=== PATIENT | male | born 1985 | race Caucasian/White ===

== ENCOUNTER 2020-09-26 01:05 | Emergency (ER) | payer MEDICARE, MEDICAID ==
--- NOTE | 2020-09-26 01:48 | EDM.PDOC ---
ED HPI GENERAL MEDICAL PROBLEM - General Chief Complaint: Cardiovascular Problem Stated Complaint: CHEST DISCOMFORT Time Seen by Provider: 09/26/20 01:20 Source of Information: Reports: Patient History Limitations: Reports: No Limitations - History of Present Illness INITIAL COMMENTS - FREE TEXT/NARRATIVE: patient presented to the ER with vague complaints for the last 6-12 months. He reports that over the last 12 months - has been experiencing cough that is worse at bedtime, thou no SOB. No fever or chills. No CP. Also reports, feeling palpitations on/off over the last 6-7 months as well. He didn't seek a medical advice for this. He reports that he smoke a ppd. No job at this time. Stay at home. He also reports that he wakes up in the middle of the night several times and snore sometimes - He reports that he might have sleep apnea as well. No N/V/D. No abd pain. no current symptoms. He reports that he googled his symptoms in the internet and decided to come to the ER for a check up. - Related Data Allergies Allergy/AdvReac Type Severity Reaction Status Date / Time diphenhydramine Allergy Other Verified 09/26/20 01:33 [From Benadryl] silver Allergy Other Verified 09/26/20 01:33 Home Meds: Home Meds NK [No Known Home Meds] 09/26/20 [History] Past Medical History HEENT History: Reports: Impaired Vision Cardiovascular History: Reports: None Respiratory History: Reports: None Gastrointestinal History: Reports: None Genitourinary History: Reports: None Musculoskeletal History: Reports: None Neurological History: Reports: Brain Injury, Other (See Below) Other 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 Endocrine/Metabolic History: Reports: Other (See Below) Other Endocrine/Metabolic History: Possible diabetes- Hematologic History: Reports: None Immunologic History: Reports: None Oncologic (Cancer) History: Reports: None Dermatologic History: Reports: None - Past Surgical History Cardiovascular Surgical History: Reports: None Social & Family History - Tobacco Use Tobacco Use Status *Q: Current Every Day Tobacco User Years of Tobacco use: 20 Packs/Tins Daily: 1 - Recreational Drug Use Recreational Drug Use: No ED ROS GENERAL - Review of Systems Review Of Systems: See Below Constitutional: Reports: No Symptoms. Denies: Fever, Chills HEENT: Reports: No Symptoms Respiratory: Reports: Cough Cardiovascular: Reports: No Symptoms. Denies: Chest Pain GI/Abdominal: Reports: No Symptoms : Reports: No Symptoms Musculoskeletal: Reports: No Symptoms Skin: Reports: No Symptoms Neurological: Reports: No Symptoms ED EXAM, GENERAL - Physical Exam Exam: See Below Exam Limited By: No Limitations General Appearance: Alert, WD/WN, No Apparent Distress Respiratory/Chest: No Respiratory Distress, Lungs Clear Cardiovascular: Normal Peripheral Pulses #1 Interpretation EKG Date: 09/26/20 Time: 01:35 Rhythm: NSR Rate (Beats/Min): 85 [place]: Normal P-Wave: Present QRS: Normal ST-T: Normal QT: Normal Comparison: NA - No Prior EKG Course - Vital Signs Last Recorded V/S: Last Vital Signs Temp 36.6 C 09/26/20 01:07 Pulse 70 09/26/20 02:25 Resp 13 09/26/20 02:25 BP 128/60 09/26/20 02:25 Pulse Ox 98 09/26/20 02:25 - Orders/Labs/Meds Orders: Active Orders 24 hr Category Date Time Status EKG Documentation Completion [RC] ASDIRECTED Care 09/26/20 01:26 Ordered CXR [Chest 1V Frontal] [CR] Stat Exams 09/26/20 01:41 Ordered Labs: Laboratory Tests 09/26/20 09/26/20 09/26/20 Range/Units 01:53 02:05 02:05 WBC 12.0 H (4.0-11.0) K/uL RBC 5.91 (4.50-6.50) M/uL Hgb 18.1 H* (13.0-18.0) g/dL Hct 50.9 (40.0-54.0) % MCV 86 (76-96) fL MCH 30.6 (27.0-32.0) pg MCHC 35.6 H (31.0-35.0) g/dL RDW 13.2 (11.0-16.0) % Plt Count 227 (150-400) K/uL MPV 10.5 H (6.0-10.0) fL D-Dimer, Quantitative < 100 (0-400) ng/mL Sodium (136-145) mmol/L Potassium (3.5-5.1) mmol/L Chloride (98-107) mmol/L Carbon Dioxide (21.0-32.0) mmol/L Anion Gap (5.0-15.0) mmol/L BUN (8-26) mg/dL Creatinine (0.70-1.30) mg/dL Est Cr Clr Drug Dosing mL/min Estimated GFR (MDRD) (>60) MLS/MIN BUN/Creatinine Ratio (6-25) Glucose (74-100) mg/dL Calcium (8.5-10.1) mg/dL Troponin I (0.000-0.060) ng/mL Urine Opiates Screen (NEGATIVE) Ur Oxycodone Screen (NEGATIVE) Urine Methadone Screen (NEGATIVE) Ur Barbiturates Screen (NEGATIVE) Ur Tricyclics Screen (NEGATIVE) Ur Phencyclidine Scrn (NEGATIVE) Ur Amphetamine Screen (NEGATIVE) U Methamphetamines Scrn (NEGATIVE) Urine MDMA Screen (NEGATIVE) U Benzodiazepines Scrn (NEGATIVE) U Cocaine Metab Screen (NEGATIVE) U Marijuana (THC) Screen (NEGATIVE) SARS CoV-2 RNA Rapid DWIGHT Negative 09/26/20 09/26/20 Range/Units 02:05 02:25 WBC (4.0-11.0) K/uL RBC (4.50-6.50) M/uL Hgb (13.0-18.0) g/dL Hct (40.0-54.0) % MCV (76-96) fL MCH (27.0-32.0) pg MCHC (31.0-35.0) g/dL RDW (11.0-16.0) % Plt Count (150-400) K/uL MPV (6.0-10.0) fL D-Dimer, Quantitative (0-400) ng/mL Sodium 140 (136-145) mmol/L Potassium 4.5 (3.5-5.1) mmol/L Chloride 102 (98-107) mmol/L Carbon Dioxide 28.0 (21.0-32.0) mmol/L Anion Gap 14.5 (5.0-15.0) mmol/L BUN 17 (8-26) mg/dL Creatinine 1.13 (0.70-1.30) mg/dL Est Cr Clr Drug Dosing 94.21 mL/min Estimated GFR (MDRD) > 60 (>60) MLS/MIN BUN/Creatinine Ratio 15.0 (6-25) Glucose 106 H (74-100) mg/dL Calcium 9.1 (8.5-10.1) mg/dL Troponin I < 0.017 (0.000-0.060) ng/mL Urine Opiates Screen Negative (NEGATIVE) Ur Oxycodone Screen Negative (NEGATIVE) Urine Methadone Screen Negative (NEGATIVE) Ur Barbiturates Screen Negative (NEGATIVE) Ur Tricyclics Screen Negative (NEGATIVE) Ur Phencyclidine Scrn Negative (NEGATIVE) Ur Amphetamine Screen Negative (NEGATIVE) U Methamphetamines Scrn Negative (NEGATIVE) Urine MDMA Screen Negative (NEGATIVE) U Benzodiazepines Scrn Negative (NEGATIVE) U Cocaine Metab Screen Negative (NEGATIVE) U Marijuana (THC) Screen Negative (NEGATIVE) SARS CoV-2 RNA Rapid DWIGHT - Re-Assessments/Exams Free Text/Narrative Re-Assessment/Exam: 09/26/20 01:50 vitals WNL EKG - NSR, no acute ischemic changes labs - including CBC, bmp, Trop, DDIMER and COVID. 09/26/20 02:49 Labs were WNL. Negative Trop and COVID. Vitals still WNL Departure - Departure Time of Disposition: 02:50 Disposition: Home, Self-Care 01 Clinical Impression: Smoking greater than 10 pack years, Severely overweight Instructions: Steps to Quit Smoking, [id number], Smoking Tobacco Information, Adult Forms: ED Department Discharge Sepsis Event Note (ED) - Evaluation Sepsis Screening Result: No Definite Risk - Focused Exam Vital Signs: Vital Signs Temp Pulse Resp BP Pulse Ox 09/26/20 02:25 70 13 128/60 98 09/26/20 01:41 74 12 145/74 H 98 09/26/20 01:07 36.6 C 77 11 L 151/77 H 98 09/26/20 01:05 36.6 C 83 14 151/77 H 98 - Problem List & Annotations (1) Severely overweight SNOMED Code(s): 281974289 Code(s): E66.3 - OVERWEIGHT Status: Acute Priority: Medium (2) Smoking greater than 10 pack years SNOMED Code(s): 06539454 Code(s): F17.210 - NICOTINE DEPENDENCE, CIGARETTES, UNCOMPLICATED Status: Acute Priority: Medium (3) Cough SNOMED Code(s): 74626059 Code(s): R05 - COUGH Status: Acute Priority: Low - Problem List Review Problem List Initiated/Reviewed/Updated: Yes - My Orders Last 24 Hours: My Active Orders 09/26/20 01:26 EKG Documentation Completion [RC] ASDIRECTED 09/26/20 01:41 CXR [Chest 1V Frontal] [CR] Stat - Assessment/Plan Last 24 Hours: My Active Orders 09/26/20 01:26 EKG Documentation Completion [RC] ASDIRECTED 09/26/20 01:41 CXR [Chest 1V Frontal] [CR] Stat Plan: - recommend to quit smoking - discuss with your PCP using nicotine replacement options - also recommend to work on losing some weight - this will help with your breathing and sleep apnea - discuss with your PCP if you need to start using a CPAP machine to help with your sleeping. - follow up with a PCP in 2-4 weeks
--- NOTE | 2020-09-26 12:29 | CR ---
DATE OF SERVICE: 09/24/20 CLINICAL DATA: cough PORTABLE CHEST: The patient is in an apical lordotic position. No priors. The patient has taken a poor inspiration. The heart size is normal. The lungs are clear. No pneumothorax. No pleural effusions. No evidence of acute intrathoracic disease. [id number] [facility]
== END 2020-09-26 02:56 | disposition home or self-care (01) ==
LOC: LB.ED 01:05
DX: E66.3 Overweight (principal); R05 Cough; F17.210 Nicotine dependence, cigarettes, uncomplicated; Z68.42 Body mass index [BMI] 45.0-49.9, adult; Z88.8 Allergy status to other drugs, medicaments and biological substances; Z88.2 Allergy status to sulfonamides; Z20.822 Contact with and (suspected) exposure to COVID-19
CPT/HCPCS: 36415; 71045; 80048; 80307; 84484; 85027; 85379; 93005; 99283; 99284-25; U0002

== ENCOUNTER 2021-04-20 19:47 | Emergency (ER) | payer MEDICARE, MEDICAID ==
--- NOTE | 2021-04-20 22:18 | EDM.PDOC ---
ED HPI GENERAL MEDICAL PROBLEM - General Chief Complaint: Cardiovascular Problem Stated Complaint: SOB Time Seen by Provider: 04/20/21 20:30 - History of Present Illness INITIAL COMMENTS - FREE TEXT/NARRATIVE: Pt comes in with C/O not feeling well for a few days. He has had chills, a cough that is occasionally productive of green mucous. And has had some chest pressure off and on for over 1 year. He knows he has anxiety at times. He is not currently working. 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 Respiratory: Reports: Cough, Sputum Cardiovascular: Reports: Other (chest pressure or tightness.) ED EXAM, GENERAL - Physical Exam Exam: See Below General Appearance: Obese Throat/Mouth: Other (posterior pharynx is mildly reddened.) #1 Interpretation EKG Date: 04/20/21 Time: 21:50 Course - Orders/Labs/Meds Orders: Active Orders 24 hr Category Date Time Status EKG Documentation Completion [RC] ASDIRECTED Care 04/20/21 21:29 Ordered Chest 1V Frontal [CR] Stat Exams 04/20/21 21:30 Ordered Labs: Laboratory Tests 04/20/21 04/20/21 04/20/21 Range/Units 20:10 21:28 21:29 WBC 11.8 H (4.0-11.0) K/uL RBC 5.50 (4.50-6.50) M/uL Hgb 17.0 (13.0-18.0) g/dL Hct 47.7 (40.0-54.0) % MCV 87 (76-96) fL MCH 30.9 (27.0-32.0) pg MCHC 35.6 H (31.0-35.0) g/dL RDW 12.8 (11.0-16.0) % Plt Count 221 (150-400) K/uL MPV 10.2 H (6.0-10.0) fL Neut % (Auto) 62.8 (45.0-70.0) % Lymph % (Auto) 28.0 (20.0-40.0) % [place] % (Auto) 7.6 (3.0-10.0) % Eos % (Auto) 1.4 (1.0-5.0) % Baso % (Auto) 0.2 (0.0-0.5) % Neut # (Auto) 7.45 (2.00-7.50) K/uL Lymph # (Auto) 3.31 (1.50-4.00) K/uL [place] # (Auto) 0.90 H (0.20-0.80) K/uL Eos # (Auto) 0.16 (0.04-0.40) K/uL Baso # (Auto) 0.02 (0.02-0.10) K/uL D-Dimer, Quantitative (0-400) ng/mL Sodium 139 (136-145) mmol/L Potassium 4.0 (3.5-5.1) mmol/L Chloride 103 (98-107) mmol/L Carbon Dioxide 27.6 (21.0-32.0) mmol/L Anion Gap 12.4 (5.0-15.0) mmol/L BUN 18 (8-26) mg/dL Creatinine 1.15 (0.70-1.30) mg/dL Est Cr Clr Drug Dosing TNP Estimated GFR (MDRD) > 60 (>60) MLS/MIN BUN/Creatinine Ratio 15.7 (6-25) Glucose 104 H (74-100) mg/dL Calcium 8.9 (8.5-10.1) mg/dL Total Bilirubin 0.6 (0.0-1.0) mg/dL AST 23 (15-37) U/L ALT 51 (12-78) U/L Alkaline Phosphatase 87 (46-116) U/L Troponin I < 0.017 (0.000-0.060) ng/mL Total Protein 7.7 (6.4-8.2) g/dL Albumin 4.1 (3.4-5.0) g/dL Globulin 3.6 (2.2-4.2) g/dL Albumin/Globulin Ratio 1.1 (0.8-2.0) SARS-CoV-2 RNA (DWIGHT) Negative (NEGATIVE) 04/20/21 Range/Units 21:30 WBC (4.0-11.0) K/uL RBC (4.50-6.50) M/uL Hgb (13.0-18.0) g/dL Hct (40.0-54.0) % MCV (76-96) fL MCH (27.0-32.0) pg MCHC (31.0-35.0) g/dL RDW (11.0-16.0) % Plt Count (150-400) K/uL MPV (6.0-10.0) fL Neut % (Auto) (45.0-70.0) % Lymph % (Auto) (20.0-40.0) % [place] % (Auto) (3.0-10.0) % Eos % (Auto) (1.0-5.0) % Baso % (Auto) (0.0-0.5) % Neut # (Auto) (2.00-7.50) K/uL Lymph # (Auto) (1.50-4.00) K/uL [place] # (Auto) (0.20-0.80) K/uL Eos # (Auto) (0.04-0.40) K/uL Baso # (Auto) (0.02-0.10) K/uL D-Dimer, Quantitative < 100 (0-400) ng/mL Sodium (136-145) mmol/L Potassium (3.5-5.1) mmol/L Chloride (98-107) mmol/L Carbon Dioxide (21.0-32.0) mmol/L Anion Gap (5.0-15.0) mmol/L BUN (8-26) mg/dL Creatinine (0.70-1.30) mg/dL Est Cr Clr Drug Dosing Estimated GFR (MDRD) (>60) MLS/MIN BUN/Creatinine Ratio (6-25) Glucose (74-100) mg/dL Calcium (8.5-10.1) mg/dL Total Bilirubin (0.0-1.0) mg/dL AST (15-37) U/L ALT (12-78) U/L Alkaline Phosphatase (46-116) U/L Troponin I (0.000-0.060) ng/mL Total Protein (6.4-8.2) g/dL Albumin (3.4-5.0) g/dL Globulin (2.2-4.2) g/dL Albumin/Globulin Ratio (0.8-2.0) SARS-CoV-2 RNA (DWIGHT) (NEGATIVE) - Re-Assessments/Exams Free Text/Narrative Re-Assessment/Exam: 04/20/21 22:14 Labs including Covid are nml, with only a slightly elevated WBC. Pt states he feels better now. He will be discharged home. Conservative measures are discussed - OTC meds prn - push fluids. Activity as tolerated. Re check prn if symptoms get worse. Departure - Departure Time of Disposition: 22:00 Disposition: Home, Self-Care 01 Condition: Good Clinical Impression: Upper respiratory infection Qualifiers: URI type: unspecified viral URI Qualified Code(s): J06.9 - Acute upper respiratory infection, unspecified - My Orders Last 24 Hours: My Active Orders 04/20/21 21:29 EKG Documentation Completion [RC] ASDIRECTED 04/20/21 21:30 Chest 1V Frontal [CR] Stat - Assessment/Plan Last 24 Hours: My Active Orders 04/20/21 21:29 EKG Documentation Completion [RC] ASDIRECTED 04/20/21 21:30 Chest 1V Frontal [CR] Stat
--- NOTE | 2021-04-21 20:25 | CR ---
CLINICAL DATA: Cough. PORTABLE CHEST, 20 APRIL 2021: Comparison was made to a prior exam dated 26 September 2020. The heart size is normal. The lungs are clear. No pneumothorax. No pleural effusions. No evidence of acute intrathoracic disease. Job: [id number] [facility]TD[facility]
== END 2021-04-20 22:20 | disposition home or self-care (01) ==
LOC: LB.ED 19:47
DX: J06.9 Acute upper respiratory infection, unspecified (principal); Z88.8 Allergy status to other drugs, medicaments and biological substances; Z91.048 Other nonmedicinal substance allergy status; Z20.822 Contact with and (suspected) exposure to COVID-19
CPT/HCPCS: 36415; 71045; 80053; 84484; 85025; 85379; 87430; 93005; 99284; U0002

== ENCOUNTER 2021-04-23 12:55 | Emergency (ER) | payer MEDICARE, MEDICAID ==
--- NOTE | 2021-05-16 06:22 | EDM.PDOC ---
ED HPI GENERAL MEDICAL PROBLEM - General Chief Complaint: Cardiovascular Problem Stated Complaint: heart racing Time Seen by Provider: 04/23/21 13:42 Source of Information: Reports: Patient History Limitations: Reports: No Limitations - History of Present Illness INITIAL COMMENTS - FREE TEXT/NARRATIVE: No current complaints. 36-year-old male presents to the ED complaining of rapid heart rate (yesterday), palpitations (yesterday), hypertension sensation on his skin. Patient became anxious about these feelings, especially last night. Patient has been getting worked up for same, patient has similar episodes. Onset is acute. Patient has no active problem currently patient experienced palpitations last night. Patient has history of experiencing him as he lays down to go to sleep feels that his heart is skipping beats. Patient drinks caffeine, and does not drink much liquid throughout the day. There is no associated chest pain, shortness of breath, dizzy, lightheaded, syncope, nausea, vomiting - Related Data Allergies Allergy/AdvReac Type Severity Reaction Status Date / Time diphenhydramine Allergy Other Verified 04/23/21 13:37 [From Benadryl] silver Allergy Other Verified 04/23/21 13:37 Home Meds: Home Meds NK [No Known Home Meds] 09/26/20 [History] Past Medical History HEENT History: Reports: Impaired Vision Cardiovascular History: Reports: None Respiratory History: Reports: None Gastrointestinal History: Reports: None Genitourinary History: Reports: None Musculoskeletal History: Reports: None Neurological History: Reports: Brain Injury, Other (See Below) Other 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 Endocrine/Metabolic History: Reports: Other (See Below) Other Endocrine/Metabolic History: Possible diabetes- Hematologic History: Reports: None Immunologic History: Reports: None Oncologic (Cancer) History: Reports: None Dermatologic History: Reports: None - Infectious Disease History Infectious Disease History: Reports: Chicken Pox - Past Surgical History Cardiovascular Surgical History: Reports: None Social & Family History - Tobacco Use Tobacco Use Status *Q: Current Every Day Tobacco User Years of Tobacco use: 20 Packs/Tins Daily: 1 Used Tobacco, but Quit: No Second Hand Smoke Exposure: No - Caffeine Use Caffeine Use: Reports: Coffee, Soda - Recreational Drug Use Recreational Drug Use: No ED ROS GENERAL - Review of Systems Review Of Systems: See Below Constitutional: Reports: No Symptoms HEENT: Reports: No Symptoms Respiratory: Reports: No Symptoms Cardiovascular: Reports: Palpitations, Other (Rapid heart rate) Endocrine: Reports: No Symptoms GI/Abdominal: Reports: No Symptoms : Reports: No Symptoms Musculoskeletal: Reports: No Symptoms Skin: Reports: Other (Pinching sensation superficial left pack) Neurological: Reports: No Symptoms Psychiatric: Reports: Anxiety Hematologic/Lymphatic: Reports: No Symptoms Immunologic: Reports: No Symptoms ED EXAM, GENERAL - Physical Exam Exam: See Below Free Text/Narrative:: 36-year-old male found in a semifowler position in trauma bay 3. No apparent distress, patient slightly anxious. Alert and oriented 3 of 3, GCS 4 5 6. Speaking in full sentences, no obvious trauma Exam Limited By: No Limitations General Appearance: Alert, WD/WN, No Apparent Distress Eye Exam: Bilateral Eye: EOMI, PERRL Ears: Normal External Exam, Hearing Grossly Normal Nose: Normal Inspection, Normal Mucosa, No Blood Throat/Mouth: Normal Inspection, Normal Lips, Normal Oropharynx, Normal Voice, No Airway Compromise Head: Atraumatic, Normocephalic Neck: Normal Inspection, Supple, Non-Tender, Full Range of Motion Respiratory/Chest: No Respiratory Distress, Lungs Clear, Normal Breath Sounds, No Accessory Muscle Use, Chest Non-Tender Cardiovascular: Normal Peripheral Pulses, Regular Rate, Rhythm, No Edema, No Gallop, No JVD, No Murmur, No Rub GI/Abdominal: Normal Bowel Sounds, Soft, Non-Tender, No Organomegaly, No Distention, No Abnormal Bruit, No Mass Back Exam: Normal Inspection, Full Range of Motion, NT Extremities: Normal Inspection, Non-Tender, No Pedal Edema, Normal Capillary Refill Neurological: Alert, Oriented, Normal Cognition, Normal Gait Psychiatric: Normal Affect, Anxious Skin Exam: Warm, Dry, Intact, Normal Color, No Rash Lymphatic: No Adenopathy #1 Interpretation EKG Date: 05/16/21 (Normal sinus rhythm without ectopy) Course - Vital Signs Last Recorded V/S: Last Vital Signs Temp 98.9 F 04/23/21 13:28 Pulse 82 04/23/21 13:28 Resp 20 04/23/21 13:28 BP 144/87 H 04/23/21 13:28 Pulse Ox 97 04/23/21 13:28 - Orders/Labs/Meds Labs: Laboratory Tests 04/23/21 04/23/21 Range/Units 14:15 14:15 WBC 8.2 D (4.0-11.0) K/uL RBC 5.37 (4.50-6.50) M/uL Hgb 16.6 (13.0-18.0) g/dL Hct 46.8 (40.0-54.0) % MCV 87 (76-96) fL MCH 30.9 (27.0-32.0) pg MCHC 35.5 H (31.0-35.0) g/dL RDW 12.9 (11.0-16.0) % Plt Count 224 (150-400) K/uL MPV 10.0 (6.0-10.0) fL Neut % (Auto) 63.7 (45.0-70.0) % Lymph % (Auto) 27.6 (20.0-40.0) % [place] % (Auto) 7.2 (3.0-10.0) % Eos % (Auto) 1.3 (1.0-5.0) % Baso % (Auto) 0.2 (0.0-0.5) % Neut # (Auto) 5.20 (2.00-7.50) K/uL Lymph # (Auto) 2.26 (1.50-4.00) K/uL [place] # (Auto) 0.59 (0.20-0.80) K/uL Eos # (Auto) 0.11 (0.04-0.40) K/uL Baso # (Auto) 0.02 (0.02-0.10) K/uL Sodium 138 (136-145) mmol/L Potassium 4.0 (3.5-5.1) mmol/L Chloride 104 (98-107) mmol/L Carbon Dioxide 27.8 (21.0-32.0) mmol/L Anion Gap 10.2 (5.0-15.0) mmol/L BUN 15 (8-26) mg/dL Creatinine 1.11 (0.70-1.30) mg/dL Est Cr Clr Drug Dosing 94.99 mL/min Estimated GFR (MDRD) > 60 (>60) MLS/MIN BUN/Creatinine Ratio 13.5 (6-25) Glucose 102 H (74-100) mg/dL Calcium 8.8 (8.5-10.1) mg/dL Departure - Departure Time of Disposition: 15:07 Disposition: Home, Self-Care 01 Condition: Good Clinical Impression: Palpitations Referrals: PCP,None [Primary Care Provider] - Forms: ED Department Discharge Sepsis Event Note (ED) - Evaluation Sepsis Screening Result: No Definite Risk - Assessment/Plan Assessment:: Per patient symptoms, history, exam patient does not have any current/active complaints at this time in the ED. Sounds as if patient is experiencing PVCs that he notices around bedtime/after laying down. Patient is being worked up by cardiology for same patient is scheduled to have Holter monitor. Patient presents no symptoms concerning for infectious process, current cardiac event. Plan: ABC, history, exam, labs (unremarkable), patient education/shared decision making, patient be followed up by cardiology with Holter monitor, no active complaints in ED, patient discharged in stable condition. Patient advised to cut down on caffeine, increase oral intake of fluid consider drinking Pedialyte.
== END 2021-04-23 15:07 | disposition home or self-care (01) ==
LOC: LB.ED 12:55
DX: R00.2 Palpitations (principal); Z72.0 Tobacco use; Z88.8 Allergy status to other drugs, medicaments and biological substances; Z91.048 Other nonmedicinal substance allergy status
CPT/HCPCS: 36415; 80048; 85025; 99285-25

== ENCOUNTER 2021-05-22 16:18 | Emergency (ER) | payer MEDICARE, MEDICAID ==
--- NOTE | 2021-05-22 17:36 | EDM.PDOC ---
ED HPI GENERAL MEDICAL PROBLEM - General Chief Complaint: Cardiovascular Problem Stated Complaint: vomitting Time Seen by Provider: 05/22/21 16:30 - History of Present Illness INITIAL COMMENTS - FREE TEXT/NARRATIVE: Pt comes to the ER with C/O not feeling well. He became SOB with nausea and vomiting x 1 today. He denies any chest pain today, but has had heartburn symptoms nightly for awhile. He has had some of these symptoms for 8 months, and is currently wearing a ZIO patch. He has had multiple workups for this with negative findings. - Related Data Allergies Allergy/AdvReac Type Severity Reaction Status Date / Time diphenhydramine Allergy Other Verified 04/23/21 13:37 [From Benadryl] silver Allergy Other Verified 04/23/21 13:37 Home Meds: Home Meds NK [No Known Home Meds] 09/26/20 [History] Past Medical History HEENT History: Reports: Impaired Vision Cardiovascular History: Reports: None Respiratory History: Reports: None Gastrointestinal History: Reports: None Genitourinary History: Reports: None Musculoskeletal History: Reports: None Neurological History: Reports: Brain Injury, Other (See Below) Other 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 Psychiatric History: Reports: Anxiety Endocrine/Metabolic History: Reports: Other (See Below) Other Endocrine/Metabolic History: Possible diabetes- Hematologic History: Reports: None Immunologic History: Reports: None Oncologic (Cancer) History: Reports: None Dermatologic History: Reports: None - Infectious Disease History Infectious Disease History: Reports: Chicken Pox - Past Surgical History Cardiovascular Surgical History: Reports: None Social & Family History - Tobacco Use Tobacco Use Status *Q: Former Tobacco User Used Tobacco, but Quit: Yes Month/Year Tobacco Last Used: 05/2021 - Caffeine Use Caffeine Use: Reports: Coffee, Soda - Alcohol Use Days Per Week of Alcohol Use: 1 Number of Drinks Per Day: 2 Total Drinks Per Week: 2 - Recreational Drug Use Recreational Drug Use: No ED ROS GENERAL - Review of Systems Review Of Systems: Comprehensive ROS is negative, except as noted in HPI. Respiratory: Reports: Shortness of Breath GI/Abdominal: Reports: Vomiting, Other (heartburn) Neurological: Reports: Dizziness ED EXAM, GENERAL - Physical Exam Exam: See Below Eye Exam: Bilateral Eye: EOMI, PERRL Cardiovascular: Other (ZIO patch is in place.) #1 Interpretation EKG Date: 05/22/21 Time: 16:50 Course - Vital Signs Last Recorded V/S: Last Vital Signs Temp 97.9 F 05/22/21 16:44 Pulse 92 05/22/21 16:44 Resp 16 05/22/21 16:44 BP 139/87 05/22/21 16:44 Pulse Ox 96 05/22/21 16:44 - Orders/Labs/Meds Orders: Active Orders 24 hr Category Date Time Status Chest 1V Frontal [CR] Stat Exams 05/22/21 16:36 Ordered EKG 12 Lead [EK] Stat Ther 05/22/21 16:36 Ordered Labs: Laboratory Tests 05/22/21 05/22/21 Range/Units 16:36 17:00 WBC 9.7 (4.0-11.0) K/uL RBC 5.01 (4.50-6.50) M/uL Hgb 15.3 (13.0-18.0) g/dL Hct 43.7 (40.0-54.0) % MCV 87 (76-96) fL MCH 30.5 (27.0-32.0) pg MCHC 35.0 (31.0-35.0) g/dL RDW 13.0 (11.0-16.0) % Plt Count 200 (150-400) K/uL MPV 10.1 H (6.0-10.0) fL Neut % (Auto) 67.5 (45.0-70.0) % Lymph % (Auto) 25.1 (20.0-40.0) % [place] % (Auto) 6.3 (3.0-10.0) % Eos % (Auto) 0.9 L (1.0-5.0) % Baso % (Auto) 0.2 (0.0-0.5) % Neut # (Auto) 6.52 (2.00-7.50) K/uL Lymph # (Auto) 2.42 (1.50-4.00) K/uL [place] # (Auto) 0.61 (0.20-0.80) K/uL Eos # (Auto) 0.09 (0.04-0.40) K/uL Baso # (Auto) 0.02 (0.02-0.10) K/uL Sodium 140 (136-145) mmol/L Potassium 4.0 (3.5-5.1) mmol/L Chloride 105 (98-107) mmol/L Carbon Dioxide 24.3 (21.0-32.0) mmol/L Anion Gap 14.7 (5.0-15.0) mmol/L BUN 21 D (8-26) mg/dL Creatinine 1.25 (0.70-1.30) mg/dL Est Cr Clr Drug Dosing 87.01 mL/min Estimated GFR (MDRD) > 60 (>60) MLS/MIN BUN/Creatinine Ratio 16.8 (6-25) Glucose 113 H (74-100) mg/dL Calcium 8.9 (8.5-10.1) mg/dL Total Bilirubin 0.4 D (0.0-1.0) mg/dL AST 30 (15-37) U/L ALT 59 (12-78) U/L Alkaline Phosphatase 77 (46-116) U/L Troponin I < 0.017 (0.000-0.060) ng/mL Total Protein 7.2 (6.4-8.2) g/dL Albumin 3.9 (3.4-5.0) g/dL Globulin 3.3 (2.2-4.2) g/dL Albumin/Globulin Ratio 1.2 (0.8-2.0) - Radiology Interpretation Free Text/Narrative:: CXR is unchanged from the previous one that was read as nml. Labs are nml as well. - Re-Assessments/Exams Free Text/Narrative Re-Assessment/Exam: 05/22/21 17:34 I will discharge the pt home. He will be started on Protonix to take at HS. He is to follow up as scheduled in the clinic next week. We also discussed the possibility of stress causing his symptoms. He tells me his neighbors stress him at times, but does not think its causing his symptoms. Departure - Departure Time of Disposition: 17:30 Disposition: Home, Self-Care 01 Clinical Impression: GERD (gastroesophageal reflux disease) Qualifiers: Esophagitis presence: esophagitis presence not specified Qualified Code(s): K21.9 - Gastro-esophageal reflux disease without esophagitis Additional Instructions: Take Protonix at bedtime. Try to reduce stress. Follow up in the clinic next week as scheduled. Sepsis Event Note (ED) - Evaluation Sepsis Screening Result: No Definite Risk - Focused Exam Vital Signs: Vital Signs Temp Pulse Resp BP Pulse Ox 05/22/21 16:44 97.9 F 92 16 139/87 96 - My Orders Last 24 Hours: My Active Orders 05/22/21 16:36 Chest 1V Frontal [CR] Stat EKG 12 Lead [EK] Stat - Assessment/Plan Last 24 Hours: My Active Orders 05/22/21 16:36 Chest 1V Frontal [CR] Stat EKG 12 Lead [EK] Stat
--- NOTE | 2021-05-22 19:53 | CR ---
Date of Service: 05/22/21 Clinical Data: sob - DIZZINESS. AP CHEST: Comparison is made to a prior exam dated 04/20/21. The heart size is within normal limits. The lungs are clear. No pneumothorax. No pleural effusions. No evidence of acute intrathoracic disease. [id number] [facility]
== END 2021-05-22 17:30 | disposition home or self-care (01) ==
LOC: LB.ED 16:18
DX: K21.9 Gastro-esophageal reflux disease without esophagitis (principal); Z91.09 Other allergy status, other than to drugs and biological substances; Z88.8 Allergy status to other drugs, medicaments and biological substances; Z87.891 Personal history of nicotine dependence
CPT/HCPCS: 36415; 71045; 80053; 84484; 85025; 93005; 99283; 99285-25

== ENCOUNTER 2021-09-03 20:15 | Emergency (ER) | payer MEDICARE, MEDICAID ==
[2021-09-03] MEDS ORDERED: Metoprolol Tartrate 25 MG Tab ONE (22:00)
== END 2021-09-03 22:26 | disposition home or self-care (01) ==
LOC: LB.ED 20:15
DX: F41.9 Anxiety disorder, unspecified (principal); I10 Essential (primary) hypertension; Z91.048 Other nonmedicinal substance allergy status; Z88.8 Allergy status to other drugs, medicaments and biological substances
CPT/HCPCS: 36415; 80048; 84484; 85025; 93005; 99283; 99284-25; A9270-GY

== ENCOUNTER 2021-11-01 22:41 | Emergency (ER) | payer MEDICARE, MEDICAID ==
[2021-11-01] MEDS ORDERED: Ketorolac 60 MG/2 ML SDV IM ONE (22:52)
[2021-11-01] MEDS ORDERED: Acetaminophen/oxyCODONE 325-5 MG Tab PO PRN (22:52)
== END 2021-11-01 23:31 | disposition home or self-care (01) ==
LOC: LB.ED 22:41
DX: S29.012A Strain of muscle and tendon of back wall of thorax, initial encounter (principal); Z72.0 Tobacco use; Z88.8 Allergy status to other drugs, medicaments and biological substances; X50.9XXA Other and unspecified overexertion or strenuous movements or postures, initial encounter
CPT/HCPCS: 96372; 99281; 99283; A9270-GY; J1885

== ENCOUNTER 2022-02-03 18:03 | Emergency (ER) | payer MEDICARE, MEDICAID | END 2022-02-03 19:03 | disposition home or self-care (01) | LOC: LB.ED 18:03 | DX: F41.0 Panic disorder [episodic paroxysmal anxiety] (principal); Z91.048 Other nonmedicinal substance allergy status; Z88.8 Allergy status to other drugs, medicaments and biological substances | CPT/HCPCS: 36415; 80048; 80307; 84484; 85025; 93005; 93010; 99282; 99283 ==

== ENCOUNTER 2022-03-05 10:49 | Emergency (ER) | payer MEDICARE, MEDICAID ==
[2022-03-05 12:01] LABS: CORONAVIRUS COVID-19 NAA NEGATIVE (NEGATIVE)
== END 2022-03-05 12:23 | disposition home or self-care (01) ==
LOC: LB.ED 10:49
DX: F17.210 Nicotine dependence, cigarettes, uncomplicated (principal); Z88.8 Allergy status to other drugs, medicaments and biological substances; Z91.048 Other nonmedicinal substance allergy status; Z79.899 Other long term (current) drug therapy; Z20.822 Contact with and (suspected) exposure to COVID-19
CPT/HCPCS: 99283; U0002

== ENCOUNTER 2025-05-18 15:15 | Emergency (ER) | payer MEDICARE | END 2025-05-18 16:20 | disposition home or self-care (01) | LOC: LB.ED 15:15 | DX: S63.501A Unspecified sprain of right wrist, initial encounter (principal); S63.502A Unspecified sprain of left wrist, initial encounter; I10 Essential (primary) hypertension; K21.9 Gastro-esophageal reflux disease without esophagitis; Z72.0 Tobacco use; Z91.09 Other allergy status, other than to drugs and biological substances; W19.XXXA Unspecified fall, initial encounter | CPT/HCPCS: 73110-50; 99283 ==